=== PATIENT | male | born 1990 | race Caucasian/White ===

== ENCOUNTER 2016-09-19 14:00 | Outpatient (RCR) | payer SELFPAY | END 2016-09-27 | disposition home or self-care (01) | LOC: PTY 14:00 | DX: M84.371D Stress fracture, right ankle, subsequent encounter for fracture with routine healing (principal); M25.371 Other instability, right ankle ==

== ENCOUNTER 2016-11-14 15:00 | Outpatient (RCR) | payer SELFPAY | END 2016-11-25 | disposition home or self-care (01) | LOC: PTY 15:00 | DX: M84.371D Stress fracture, right ankle, subsequent encounter for fracture with routine healing (principal); X58.XXXD Exposure to other specified factors, subsequent encounter; M25.371 Other instability, right ankle ==

== ENCOUNTER 2016-12-23 15:00 | Outpatient (RCR) | payer SELFPAY | END 2016-12-25 | disposition home or self-care (01) | LOC: PTY 15:00 | DX: M25.371 Other instability, right ankle (principal); S82.891D Other fracture of right lower leg, subsequent encounter for closed fracture with routine healing; X58.XXXD Exposure to other specified factors, subsequent encounter ==

== ENCOUNTER 2017-01-18 09:00 | Outpatient (RCR) | payer SELFPAY | END 2017-01-25 | disposition home or self-care (01) | LOC: PTY 09:00 | DX: M84.371D Stress fracture, right ankle, subsequent encounter for fracture with routine healing (principal); M25.371 Other instability, right ankle ==

== ENCOUNTER 2017-03-07 08:59 | Outpatient (RCR) | payer SELFPAY | END 2017-03-27 | disposition home or self-care (01) | LOC: PTY 08:59 | DX: M84.371D Stress fracture, right ankle, subsequent encounter for fracture with routine healing (principal); M25.371 Other instability, right ankle ==